=== PATIENT | female | born 1985 | race Caucasian/White ===

== ENCOUNTER 2016-12-26 09:22 | Emergency (ER) | payer BC, MEDICAID, OTHER ==
[~2016-12-26] VITALS: Ht 152.4 cm; Wt 54.5 kg
[2016-12-26 12:54] VITALS: BP 119/79
== END 2016-12-26 13:25 | disposition home or self-care (01) ==
LOC: M ED 09:22
DX: Z39.1 Encounter for care and examination of lactating mother (principal); G43.909 Migraine, unspecified, not intractable, without status migrainosus

== ENCOUNTER → 2017-04-06 | Outpatient (REF) | payer OTHER ==
[2017-04-06 14:04] LABS: CONTROL LINE HCG INT CTR LINE PRESENT
== END ==
LOC: M LAB REF 12:42
PROVIDERS: ATTEND Nurse Practitioner Adult Health
DX: N91.2 Amenorrhea, unspecified (principal)